=== PATIENT | female | born 1995 | race Caucasian/White ===

== ENCOUNTER 2018-01-18 11:28 | Emergency (ER) | payer BC, MEDICAID ==
[~2018-01-18] VITALS: Ht 165.1 cm; Wt 57.3 kg
[~2018-01-18 11:28] MED LIST: AZIT250T PO; ETON68IM3 SQ; FAMO20TA44 PO; HYDR4TAB45 PO; OMEP20CA10 PO; ONDA8TAB9 PO; PHE25R PR; SUCR1ORA2 PO
[2018-01-18 11:30] VITALS: BP 154/82
[2018-01-18] MEDS ORDERED: LORazepam 2 mg/ml vial IV ONE ×2 (11:35→13:35)
[2018-01-18] MEDS ORDERED: normal saline 1000ML IV soln IVB ONE ×2 (11:35→12:20)
[2018-01-18] MEDS ORDERED: proCHLORperazine 10 MG/2 ml inj IV ONE (11:35)
[2018-01-18] MEDS ORDERED: haloperidol lactate 5mg/ml inj IM ONE ×2 (11:50→12:20)
[2018-01-18 11:57] LABS: BASOPHILS % (AUTO) 0.3 % (0-1); EOSINOPHILS # (AUTO) 0.6 X10'3 (0-0.9); HEMATOCRIT 42.4 % (35.0-45.0); HEMOGLOBIN 14.8 g/dl (12.0-16.0); LYMPHOCYTES # (AUTO) 3.1 X10'3 (1.1-4.8); LYMPHOCYTES % (AUTO) 22.5 % (21-51); MEAN CORPUSCULAR HEMOGLOBIN 33.1 PG (27.0-31.0); MEAN CORPUSCULAR HGB CONC 34.8 % (33.0-36.5); MEAN PLATELET VOLUME 8.4 FL (7.4-10.4); MONOCYTES # (AUTO) 0.7 X10'3 (0-0.9); NEUTROPHILS # (AUTO) 9.5 X10'3 (1.8-7.7); NEUTROPHILS % (AUTO) 68.2 % (42-75); PLATELET COUNT 328 X10'3 (140-440); RED BLOOD COUNT 4.47 X10'6 (4.20-5.60); RED CELL DISTRIBUTION WIDTH 12.8 % (11.5-14.5); WHITE BLOOD COUNT 13.9 X10'3 (4.5-11.0)
[2018-01-18 12:13] LABS: ALANINE AMINOTRANSFERASE 24 U/L (12-78); ALBUMIN 4.3 G/DL (3.4-5.0); ALBUMIN/GLOBULIN RATIO 1.1 (1.1-1.5); ALKALINE PHOSPHATASE 55 IU/L (46-116); ANION GAP 17 (8-16); ASPARTATE AMINO TRANSFERASE 20 U/L (10-37); BILIRUBIN,TOTAL 0.3 MG/DL (0.1-1.0); BLOOD UREA NITROGEN 18 MG/DL (7-18); BUN/CREATININE RATIO 16.8 (6.6-38.0); CALCIUM 9.7 MG/DL (8.5-10.1); CHLORIDE 105 MMOL/L (99-107); CREATININE 1.07 MG/DL (0.40-0.90); GLUCOSE 123 MG/DL (70-104); LIPASE 412 U/L (73-393); POTASSIUM 3.9 MMOL/L (3.5-5.1); SODIUM 143 MMOL/L (135-145); TOTAL CARBON DIOXIDE 20.6 MMOL/L (24-32); TOTAL PROTEIN 8.1 G/DL (6.4-8.2); eGFR 64 ML/MIN
[2018-01-18] MEDS ORDERED: famotidine/PF 10 mg/ml inj IV ONE (12:20)
[2018-01-18 12:28] LABS: ETHANOL < 0.010 GM/DL (0.0-0.010)
[2018-01-18] MEDS ORDERED: ONDA4TAB9 SL (13:34)
== END 2018-01-18 14:15 | disposition home or self-care (01) ==
LOC: ER 11:29
DX: G43.A0 Cyclical vomiting, in migraine, not intractable (principal); R10.84 Generalized abdominal pain; F12.10 Cannabis abuse, uncomplicated; Z98.890 Other specified postprocedural states; Z88.2 Allergy status to sulfonamides; Z88.6 Allergy status to analgesic agent; Z79.899 Other long term (current) drug therapy
CPT/HCPCS: 36415; 80053; 80320; 83690; 85025; 96361; 96372; 96374; 96375; 96376; 99285; J0780; J1630; J2060; J3490; J7030

== ENCOUNTER 2018-01-19 14:35 | Emergency (ER) | payer MEDICAID ==
[~2018-01-19] VITALS: Ht 165.1 cm; Wt 57.0 kg
[~2018-01-19 14:35] MED LIST changes: +ONDA4TAB9 SL
[2018-01-19 15:18] LABS: BASOPHILS % (AUTO) 0.1 % (0-1); EOSINOPHILS # (AUTO) 0.3 X10'3 (0-0.9); EOSINOPHILS % (AUTO) 2.3 % (0-6); HEMATOCRIT 41.2 % (35.0-45.0); HEMOGLOBIN 14.3 g/dl (12.0-16.0); LYMPHOCYTES # (AUTO) 1.2 X10'3 (1.1-4.8); LYMPHOCYTES % (AUTO) 8.8 % (21-51); MEAN CORPUSCULAR HEMOGLOBIN 32.9 PG (27.0-31.0); MEAN CORPUSCULAR HGB CONC 34.6 % (33.0-36.5); MEAN CORPUSCULAR VOLUME 95.1 FL (78-98); MEAN PLATELET VOLUME 8.4 FL (7.4-10.4); MONOCYTES # (AUTO) 0.6 X10'3 (0-0.9); MONOCYTES % (AUTO) 4.4 % (2-12); NEUTROPHILS # (AUTO) 11.7 X10'3 (1.8-7.7); NEUTROPHILS % (AUTO) 84.4 % (42-75); PLATELET COUNT 265 X10'3 (140-440); RED BLOOD COUNT 4.33 X10'6 (4.20-5.60); RED CELL DISTRIBUTION WIDTH 12.5 % (11.5-14.5); WHITE BLOOD COUNT 13.8 X10'3 (4.5-11.0)
[2018-01-19 15:42] LABS: ALANINE AMINOTRANSFERASE 23 U/L (12-78); ALBUMIN 4.1 G/DL (3.4-5.0); ALBUMIN/GLOBULIN RATIO 1.1 (1.1-1.5); ALKALINE PHOSPHATASE 60 IU/L (46-116); ANION GAP 13 (8-16); ASPARTATE AMINO TRANSFERASE 32 U/L (10-37); BILIRUBIN,TOTAL 0.6 MG/DL (0.1-1.0); BLOOD UREA NITROGEN 12 MG/DL (7-18); BUN/CREATININE RATIO 15.2 (6.6-38.0); CALCIUM 9.4 MG/DL (8.5-10.1); CHLORIDE 104 MMOL/L (99-107); CREATININE 0.79 MG/DL (0.40-0.90); GLUCOSE 118 MG/DL (70-104); POTASSIUM 3.5 MMOL/L (3.5-5.1); SODIUM 141 MMOL/L (135-145); TOTAL CARBON DIOXIDE 23.7 MMOL/L (24-32); TOTAL PROTEIN 7.8 G/DL (6.4-8.2); eGFR > 90 ML/MIN
[2018-01-19] MEDS ORDERED: normal saline 1000ml 1,000 ML IV ONE (20:36)
[2018-01-19] MEDS ORDERED: normal saline 1000ML IV soln IVB ONE ×2 (20:40→22:50)
[2018-01-19] MEDS ORDERED: haloperidol lactate 5mg/ml inj IM ONE ×2 (20:40→21:50)
[2018-01-19] MEDS ORDERED: LORazepam 2 mg/ml vial IV ONE (20:40)
[2018-01-19] MEDS ORDERED: diphenhydrAMINE 50 mg/ml inj IV ONE (20:40)
[2018-01-19] MEDS ORDERED: ondansetron/PF 4mg/2ml inj IV ONE (21:40)
[2018-01-19] MEDS ORDERED: proCHLORperazine 10 MG/2 ml inj IV ONE (22:50)
[2018-01-20 00:37] VITALS: BP 113/60
== END 2018-01-20 00:52 | disposition home or self-care (01) ==
LOC: ER 14:35
DX: R10.9 Unspecified abdominal pain (principal); R11.2 Nausea with vomiting, unspecified; F12.10 Cannabis abuse, uncomplicated; Z98.890 Other specified postprocedural states; Z88.2 Allergy status to sulfonamides; Z88.6 Allergy status to analgesic agent; Z79.899 Other long term (current) drug therapy
CPT/HCPCS: 36415; 80053; 85025; 96361; 96372; 96374; 96375; 99285; J0780; J1200; J1630; J2060; J2405; J7030

== ENCOUNTER 2018-01-24 06:37 | Emergency (ER) | payer MEDICAID ==
[~2018-01-24] VITALS: Ht 165.1 cm; Wt 52.0 kg
[2018-01-24] MEDS ORDERED: proCHLORperazine 10 MG/2 ml inj IV ONE (07:40)
[2018-01-24] MEDS ORDERED: normal saline 1000ML IV soln IVB ONE ×2 (07:40→11:20)
[2018-01-24 07:47] LABS: BASOPHILS # (AUTO) 0.1 X10'3 (0-0.2); BASOPHILS % (AUTO) 0.4 % (0-1); EOSINOPHILS # (AUTO) 0.1 X10'3 (0-0.9); EOSINOPHILS % (AUTO) 1.1 % (0-6); HEMATOCRIT 41.9 % (35.0-45.0); HEMOGLOBIN 14.8 g/dl (12.0-16.0); LYMPHOCYTES # (AUTO) 0.9 X10'3 (1.1-4.8); LYMPHOCYTES % (AUTO) 6.5 % (21-51); MEAN CORPUSCULAR HGB CONC 35.3 % (33.0-36.5); MEAN CORPUSCULAR VOLUME 93.5 FL (78-98); MEAN PLATELET VOLUME 8.7 FL (7.4-10.4); MONOCYTES # (AUTO) 0.9 X10'3 (0-0.9); MONOCYTES % (AUTO) 6.5 % (2-12); NEUTROPHILS # (AUTO) 11.4 X10'3 (1.8-7.7); NEUTROPHILS % (AUTO) 85.5 % (42-75); PLATELET COUNT 352 X10'3 (140-440); RED BLOOD COUNT 4.48 X10'6 (4.20-5.60); RED CELL DISTRIBUTION WIDTH 12.3 % (11.5-14.5); WHITE BLOOD COUNT 13.4 X10'3 (4.5-11.0)
[2018-01-24 08:01] LABS: ALANINE AMINOTRANSFERASE 26 U/L (12-78); ALBUMIN 4.6 G/DL (3.4-5.0); ALBUMIN/GLOBULIN RATIO 1.1 (1.1-1.5); ALKALINE PHOSPHATASE 59 IU/L (46-116); AMYLASE 46 U/L (25-115); ANION GAP 15 (8-16); ASPARTATE AMINO TRANSFERASE 20 U/L (10-37); BLOOD UREA NITROGEN 18 MG/DL (7-18); BUN/CREATININE RATIO 22.5 (6.6-38.0); CHLORIDE 96 MMOL/L (99-107); GLUCOSE 102 MG/DL (70-104); LIPASE 109 U/L (73-393); MAGNESIUM 2.7 MG/DL (1.5-2.4); POTASSIUM 3.1 MMOL/L (3.5-5.1); SODIUM 139 MMOL/L (135-145); TOTAL CARBON DIOXIDE 27.6 MMOL/L (24-32); TOTAL PROTEIN 8.9 G/DL (6.4-8.2); eGFR 90 ML/MIN
[2018-01-24 08:02] LABS: INR 1.2 INR; PROTHROMBIN TIME 12.2 SECONDS (9.0-12.0)
[2018-01-24 08:05] LABS: ETHANOL < 0.010 GM/DL (0.0-0.010)
[2018-01-24] MEDS ORDERED: morphine 4 MG/ML inj SYRINge IV ONE (08:20)
[2018-01-24] MEDS ORDERED: ketorolac tromethamine 15mg/ml inj. IV ONE (08:20)
[2018-01-24] MEDS ORDERED: potassium 10mEq/100ml NS w/LIDOcaine (10mg/bag) IV ONE (08:25)
[2018-01-24] MEDS ORDERED: LORazepam 2 mg/ml vial IV ONE ×2 (08:25→11:20)
[2018-01-24] MEDS ORDERED: OLANZapine 5mg rapidly disint. tablet PO ONE (08:30)
[2018-01-24 11:01] LABS: CLARITY,URINE SLIGHTLY CLOUDY (Clear); COLOR,URINE YELLOW (Yellow); GLUCOSE, URINE NEGATIVE (Neg); KETONES,URINE >=80 mg/dl (Neg); LEUKOCYTE ESTERASE ,URINE NEGATIVE (Neg); NITRITES, URINE NEGATIVE (Neg); OCCULT BLOOD,URINE NEGATIVE (Neg); PROTEIN,URINE TRACE mg/dl (Neg); UA COLLECTION TYPE CLN CATCH MIDSTREAM; UROBILINOGEN,URINE 0.2 E.U/dL (0.2-1.0)
[2018-01-24 11:02] LABS: URINE HCG NEGATIVE (NEG)
[2018-01-24 11:06] LABS: BACTERIA,URINE 1+ /HPF (Neg); RBC,URINE 0-2 /HPF (0-2); WBC,URINE 0-4 /HPF (0-4)
[2018-01-24 11:07] LABS: AMORPHOUS PHOSPHATES 1+; MUCUS STRANDS MODERATE /LPF (Neg); SQUAMOUS EPITHELIAL CELL,UR MODERATE /LPF (FEW)
[2018-01-24 11:13] LABS: URINE AMPHETAMINE SCREEN NEGATIVE (Neg); URINE BARBITUATE SCREEN NEGATIVE (Neg); URINE BENZODIAZEPINES SCREEN NEGATIVE (Neg); URINE CANNABINOID SCREEN POSITIVE (Neg); URINE COCAINE SCREEN NEGATIVE (Neg); URINE METHADONE SCREEN NEGATIVE (Neg); URINE OPIATE SCREEN POSITIVE (Neg); URINE PHENCYCLIDINE SCREEN NEGATIVE (Neg)
[2018-01-24] MEDS ORDERED: CAPS60CR6 TP ×2 (11:30→11:34)
[2018-01-24] MEDS ORDERED: PROC-8 PO (11:30)
[2018-01-24 13:29] VITALS: BP 115/63
== END 2018-01-24 13:36 | disposition home or self-care (01) ==
LOC: ER 06:37
DX: G43.A0 Cyclical vomiting, in migraine, not intractable (principal); E87.6 Hypokalemia; Z79.899 Other long term (current) drug therapy; Z88.2 Allergy status to sulfonamides; Z88.6 Allergy status to analgesic agent; Z98.890 Other specified postprocedural states
CPT/HCPCS: 36415; 80053; 80178; 80305; 80320; 81001; 81025; 82150; 83690; 83735; 85025; 85610; 96361; 96374; 96375; 96376; 99284; J0780; J1885; J2060; J2270; J3480; J7030

== ENCOUNTER 2018-09-17 14:53 | Emergency (ER) | payer MEDICAID ==
[~2018-09-17] VITALS: Ht 165.1 cm; Wt 53.0 kg
[~2018-09-17 14:53] MED LIST changes: -AZIT250T PO; +CAPS60CR6 TP; -FAMO20TA44 PO; -HYDR4TAB45 PO; -ONDA4TAB9 SL; -PHE25R PR; +PROC-8 PO; -SUCR1ORA2 PO
[2018-09-17 15:23] VITALS: BP 133/88
[2018-09-17] MEDS ORDERED: proCHLORperazine 25mg suppository RC ONE (16:00)
[2018-09-17] MEDS ORDERED: PROC25SU31 RC (16:01)
[2018-09-17] MEDS ORDERED: DIPH25CA83 PO (16:01)
[2018-09-19] MEDS ORDERED: ONDA4TAB12 PO (20:25)
[2018-09-19] MEDS ORDERED: OMEP40CA37 PO (20:28)
== END 2018-09-17 16:39 | disposition home or self-care (01) ==
LOC: ER 14:53
DX: R11.2 Nausea with vomiting, unspecified (principal); R10.33 Periumbilical pain; Z88.2 Allergy status to sulfonamides; Z88.8 Allergy status to other drugs, medicaments and biological substances; Z79.899 Other long term (current) drug therapy; Z98.890 Other specified postprocedural states
CPT/HCPCS: 99284

== ENCOUNTER → 2018-12-11 | Emergency (ER) | payer MEDICAID ==
[~2018-12-11] VITALS: Ht 165.1 cm; Wt 49.5 kg
[~2018-12-11] MED LIST changes: +DIPH25CA83 PO; +LORazepam 1 MG tablet PO ONE; +ONDA4TAB12 PO; +ketorolac tromethamine 15mg/ml inj. IM ONE
[2018-12-11 17:58] VITALS: BP 112/60
== END | disposition home or self-care (01) ==
LOC: ER 17:54
DX: F41.0 Panic disorder [episodic paroxysmal anxiety] (principal); M54.16 Radiculopathy, lumbar region; R11.10 Vomiting, unspecified; R20.0 Anesthesia of skin; F31.9 Bipolar disorder, unspecified; Z98.890 Other specified postprocedural states; Z88.8 Allergy status to other drugs, medicaments and biological substances; Z88.2 Allergy status to sulfonamides; Z88.5 Allergy status to narcotic agent; Z88.6 Allergy status to analgesic agent; Z79.899 Other long term (current) drug therapy
CPT/HCPCS: 96372; 99284; J1885

== ENCOUNTER → 2019-02-12 | Emergency (ER) | payer MEDICAID ==
[~2019-02-12] VITALS: Ht 165.1 cm; Wt 46.2 kg
[~2019-02-12] MED LIST changes: -LORazepam 1 MG tablet PO ONE; +NAPR-56 PO; +PHE12.5T PO; +haloperidol lactate 5mg/ml inj IM ONE; -ketorolac tromethamine 15mg/ml inj. IM ONE; +naproxen 500mg tablet PO ONE; +ondansetron 4mg rapidly disintigrating tab PO ONE; +ondansetron 4mg rapidly disintigrating tab PO STA
--- NOTE | 2019-02-12 08:11 | NUR ---
patient to ct.
--- NOTE | 2019-02-12 09:17 | NUR ---
PATIENT'S FRIEND ERICK TO TRANSPORT HER HOME.
[2019-02-12 09:18] VITALS: BP 131/80
== END | disposition home or self-care (01) ==
LOC: ER 07:29
DX: F07.81 Postconcussional syndrome (principal); F17.200 Nicotine dependence, unspecified, uncomplicated; Z88.5 Allergy status to narcotic agent; Z88.2 Allergy status to sulfonamides; Z79.899 Other long term (current) drug therapy; W18.09XA Striking against other object with subsequent fall, initial encounter; Y93.89 Activity, other specified; Y92.89 Other specified places as the place of occurrence of the external cause; Y99.8 Other external cause status
CPT/HCPCS: 70450; 96372; 99284; J1630

== ENCOUNTER 2019-04-19 15:24 | Emergency (ER) | payer MEDICAID ==
[~2019-04-19] VITALS: Ht 165.1 cm; Wt 45.0 kg
[~2019-04-19 15:24] MED LIST changes: -NAPR-56 PO; -OMEP20CA10 PO; +OMEP20CA11 PO; -PHE12.5T PO; +PROM12.512 PO; -haloperidol lactate 5mg/ml inj IM ONE; -naproxen 500mg tablet PO ONE; -ondansetron 4mg rapidly disintigrating tab PO ONE; -ondansetron 4mg rapidly disintigrating tab PO STA
[2019-04-19 16:15] LABS: BASOPHILS # (AUTO) 0.1 X10'3 (0-0.2); BASOPHILS % (AUTO) 0.4 % (0-1); EOSINOPHILS # (AUTO) 0.2 X10'3 (0-0.9); EOSINOPHILS % (AUTO) 1.4 % (0-6); HEMATOCRIT 46.3 % (35.0-45.0); HEMOGLOBIN 15.5 g/dl (12.0-16.0); LYMPHOCYTES # (AUTO) 2.5 X10'3 (1.1-4.8); LYMPHOCYTES % (AUTO) 16.4 % (21-51); MEAN CORPUSCULAR HEMOGLOBIN 32.5 PG (27.0-31.0); MEAN CORPUSCULAR HGB CONC 33.5 g/dL (33.0-36.5); MEAN CORPUSCULAR VOLUME 97.1 FL (78-98); MEAN PLATELET VOLUME 8.4 FL (7.4-10.4); MONOCYTES # (AUTO) 0.7 X10'3 (0-0.9); MONOCYTES % (AUTO) 4.8 % (2-12); NEUTROPHILS # (AUTO) 11.6 X10'3 (1.8-7.7); PLATELET COUNT 314 X10'3 (140-440); RED BLOOD COUNT 4.77 X10'6 (4.20-5.60); RED CELL DISTRIBUTION WIDTH 12.8 % (11.5-14.5)
[2019-04-19 16:29] LABS: ALANINE AMINOTRANSFERASE 40 U/L (12-78); ALBUMIN 4.7 G/DL (3.4-5.0); ALBUMIN/GLOBULIN RATIO 1.2 (1.1-1.5); ALKALINE PHOSPHATASE 64 IU/L (46-116); AMYLASE 55 U/L (25-115); ANION GAP 15 (8-16); ASPARTATE AMINO TRANSFERASE 24 U/L (10-37); BILIRUBIN,TOTAL 0.5 MG/DL (0.1-1.0); BLOOD UREA NITROGEN 14 MG/DL (7-18); BUN/CREATININE RATIO 15.4 (6.6-38.0); CHLORIDE 103 MMOL/L (99-107); CREATININE 0.91 MG/DL (0.40-0.90); GLUCOSE 105 MG/DL (70-104); LIPASE 137 U/L (73-393); POTASSIUM 3.7 MMOL/L (3.5-5.1); SODIUM 139 MMOL/L (135-145); TOTAL CARBON DIOXIDE 21.3 MMOL/L (24-32); TOTAL PROTEIN 8.7 G/DL (6.4-8.2); eGFR 77 ML/MIN
[2019-04-19] MEDS ORDERED: LORA1TAB PO (16:30)
[2019-04-19] MEDS ORDERED: ACYC-202 PO ×2 (16:30→20:04)
[2019-04-19 16:32] LABS: CALCIUM 10.2 MG/DL (8.5-10.1)
--- NOTE | 2019-04-19 16:45 | NUR ---
PATIENT AGREED TO BE ASSESSED IN HALLWAY 7.
--- NOTE | 2019-04-19 17:08 | NUR ---
patient unable to provide urine at this time,reports she is unable to get up without vomiting.
[2019-04-19] MEDS ORDERED: ondansetron/PF 4mg/2ml inj IV STA (17:16)
[2019-04-19 17:41] VITALS: BP 125/76
--- NOTE | 2019-04-19 18:00 | NUR ---
YULISA NGUYEN AT BEDSIDE.
[2019-04-19] MEDS ORDERED: normal saline 1000ml 1,000 ML IV ONE (18:10)
[2019-04-19] MEDS ORDERED: HYDROmorphone 1 mg/ml syringe IV ONE (18:10)
[2019-04-19] MEDS ORDERED: LORazepam 2 mg/ml vial IV ONE (18:10)
[2019-04-19] MEDS ORDERED: ondansetron/PF 4mg/2ml inj IV ONE (18:10)
--- NOTE | 2019-04-19 18:10 | NUR ---
PATIENT UP TO THE BATHROOM.
--- NOTE | 2019-04-19 18:47 | NUR ---
Assumed care. Patient has been given Zofran, Dilaaudid, and Zofran IV. Pain is now a 5 on a 0-10 scale. Decreased nausea. Patient is sitting up texting on her cell phone.
--- NOTE | 2019-04-19 19:30 | NUR ---
Patient is up to the bathroom, she believes she can void. If not successful a quick cath will be done.
[2019-04-19 19:39] LABS: CLARITY,URINE CLEAR (Clear); COLOR,URINE YELLOW (Yellow); GLUCOSE, URINE NEGATIVE (Neg); KETONES,URINE 15 mg/dl (Neg); LEUKOCYTE ESTERASE ,URINE NEGATIVE (Neg); NITRITES, URINE NEGATIVE (Neg); OCCULT BLOOD,URINE NEGATIVE (Neg); PH,URINE 6.5 (4.8-8.0); PROTEIN,URINE 30 mg/dl (Neg); URINE HCG NEGATIVE (NEG); UROBILINOGEN,URINE 0.2 E.U/dL (0.2-1.0)
[2019-04-19 19:40] LABS: UA COLLECTION TYPE CLN CATCH MIDSTREAM
[2019-04-19 19:49] LABS: BACTERIA,URINE 2+ /HPF (Neg); HYALINE CASTS 0-3 /LPF (NEGATIVE); MUCUS STRANDS FEW /LPF (Neg); RBC,URINE 0-2 /HPF (0-2); SQUAMOUS EPITHELIAL CELL,UR MANY /LPF (FEW); WBC,URINE 0-4 /HPF (0-4)
[2019-04-19] MEDS ORDERED: ONDA4TAB6 PO (20:04)
--- NOTE | 2019-04-19 20:21 | NUR ---
PT STATES PAIN IS 5/10, DECLINES ANY PAIN MEDICATION
== END 2019-04-19 20:25 | disposition home or self-care (01) ==
LOC: ER 15:24
DX: B00.9 Herpesviral infection, unspecified (principal); R10.84 Generalized abdominal pain; R11.2 Nausea with vomiting, unspecified; F41.9 Anxiety disorder, unspecified; F31.9 Bipolar disorder, unspecified; Z98.890 Other specified postprocedural states; Z88.5 Allergy status to narcotic agent; Z88.2 Allergy status to sulfonamides; Z88.8 Allergy status to other drugs, medicaments and biological substances; Z79.2 Long term (current) use of antibiotics; Z79.899 Other long term (current) drug therapy
CPT/HCPCS: 36415; 80053; 81001; 81025; 82150; 83690; 85025; 85610; 96361; 96374; 96375; 99283; J1170; J2060; J2405; J7030

== ENCOUNTER 2019-06-09 10:21 | Emergency (ER) | payer MEDICAID ==
[~2019-06-09] VITALS: Ht 165.1 cm; Wt 44.5 kg
[~2019-06-09 10:21] MED LIST changes: +ACYC-202 PO; -DIPH25CA83 PO; +LORA1TAB PO; -ONDA4TAB12 PO; +ONDA4TAB6 PO; -PROM12.512 PO
[2019-06-09 11:04] LABS: BASOPHILS # (AUTO) 0.1 X10'3 (0-0.2); BASOPHILS % (AUTO) 0.8 % (0-1); EOSINOPHILS # (AUTO) 0.2 X10'3 (0-0.9); EOSINOPHILS % (AUTO) 1.4 % (0-6); HEMATOCRIT 44.7 % (35.0-45.0); HEMOGLOBIN 15.4 g/dl (12.0-16.0); LYMPHOCYTES % (AUTO) 18.5 % (21-51); MEAN CORPUSCULAR HEMOGLOBIN 33.2 PG (27.0-31.0); MEAN CORPUSCULAR HGB CONC 34.4 g/dL (33.0-36.5); MEAN CORPUSCULAR VOLUME 96.4 FL (78-98); MEAN PLATELET VOLUME 8.7 FL (7.4-10.4); MONOCYTES # (AUTO) 0.4 X10'3 (0-0.9); MONOCYTES % (AUTO) 3.6 % (2-12); NEUTROPHILS # (AUTO) 8.3 X10'3 (1.8-7.7); NEUTROPHILS % (AUTO) 75.7 % (42-75); PLATELET COUNT 271 X10'3 (140-440); RED BLOOD COUNT 4.63 X10'6 (4.20-5.60); RED CELL DISTRIBUTION WIDTH 13.3 % (11.5-14.5)
[2019-06-09 11:16] LABS: ALANINE AMINOTRANSFERASE 28 U/L (12-78); ALBUMIN/GLOBULIN RATIO 1.5 (1.1-1.5); ALKALINE PHOSPHATASE 50 IU/L (46-116); ANION GAP 14 (8-16); ASPARTATE AMINO TRANSFERASE 16 U/L (10-37); BILIRUBIN,TOTAL 0.7 MG/DL (0.1-1.0); BLOOD UREA NITROGEN 15 MG/DL (7-18); BUN/CREATININE RATIO 18.5 (6.6-38.0); CALCIUM 9.8 MG/DL (8.5-10.1); CHLORIDE 105 MMOL/L (99-107); CREATININE 0.81 MG/DL (0.40-0.90); GLUCOSE 94 MG/DL (70-104); POTASSIUM 3.9 MMOL/L (3.5-5.1); SODIUM 141 MMOL/L (135-145); TOTAL CARBON DIOXIDE 21.6 MMOL/L (24-32); TOTAL PROTEIN 8.4 G/DL (6.4-8.2); eGFR 88 ML/MIN
[2019-06-09] MEDS ORDERED: normal saline 1000ml 1,000 ML IV ONE (12:00)
[2019-06-09 12:09] LABS: CLARITY,URINE SLIGHTLY CLOUDY (Clear); COLOR,URINE YELLOW (Yellow); GLUCOSE, URINE NEGATIVE (Neg); KETONES,URINE TRACE mg/dl (Neg); LEUKOCYTE ESTERASE ,URINE NEGATIVE (Neg); NITRITES, URINE NEGATIVE (Neg); OCCULT BLOOD,URINE NEGATIVE (Neg); PH,URINE 8.5 (4.8-8.0); PROTEIN,URINE NEGATIVE (Neg); UROBILINOGEN,URINE 0.2 E.U/dL (0.2-1.0)
--- NOTE | 2019-06-09 12:12 | NUR ---
DR MARAVILLA AT BEDSIDE, MD INFORMED THAT THE MRI OF LUMBAR AND CERVICAL AREAS DONE AT [facility] THAT SHE REQUESTED ARE ON HER DESK WHEN PATIENT GOT UP TO BEDSIDE COMMODE WITH MINIMAL ASSIST, PATIENT USED HER RIGHT ARM TO MASS SPECTROMETRY MANAGER THE COMMODE AND BORE WEIGHT ON IT. VOIDED 350 ML IN COMMODE, URINE SENT MOTHER STATES THAT HER DAUGHTER HAS AVOIDANCE RESTRICTIVE EATING DISORDER, PATIENT STATES THAT SHE HAS NOT HAD ANYTHING TO EAT AND VERY LITTLE TO DRINK TODAY, PATIENT STATES THAT SHE EATS ONCE DAILY AT NIGHT. PATIENT IS EXTREMELY HYPER SENSITIVE TO TOUCH AND IS ALMANZA.
[2019-06-09 12:15] LABS: URINE AMPHETAMINE SCREEN NEGATIVE (Neg); URINE BARBITUATE SCREEN NEGATIVE (Neg); URINE BENZODIAZEPINES SCREEN NEGATIVE (Neg); URINE CANNABINOID SCREEN POSITIVE (Neg); URINE COCAINE SCREEN NEGATIVE (Neg); URINE METHADONE SCREEN NEGATIVE (Neg); URINE OPIATE SCREEN NEGATIVE (Neg); URINE PHENCYCLIDINE SCREEN NEGATIVE (Neg)
[2019-06-09] MEDS ORDERED: ketorolac trometh. 30mg/ml inj. IV ONE (12:15)
[2019-06-09 12:17] LABS: UA COLLECTION TYPE CLN CATCH MIDSTREAM
[2019-06-09 12:19] LABS: MUCUS STRANDS FEW /LPF (Neg)
[2019-06-09 12:22] LABS: RBC,URINE 0-2 /HPF (0-2); WBC,URINE 0-4 /HPF (0-4)
[2019-06-09 12:24] LABS: AMORPHOUS PHOSPHATES 1+
[2019-06-09 12:35] LABS: BACTERIA,URINE 1+ /HPF (Neg)
[2019-06-09 12:37] LABS: SQUAMOUS EPITHELIAL CELL,UR MODERATE /LPF (FEW)
--- NOTE | 2019-06-09 13:11 | NUR ---
IAM TOLD TECH WALKING BY THAT SHE WANTS HER IV OUT, EDILBERTO BUSY WITH ANOTHER PATIENT SO I ASKED THE TECH TO RELAY AMESSAGE: THAT THE PATIENT IS NOT DISCHARGE READY AND WE CAN TAKE OUT THE IV RIGHT NOW IF SHE WOULD LIKE TO LEAVE AMA
[2019-06-09] MEDS ORDERED: ondansetron/PF 4mg/2ml inj IV ONE (13:20)
--- NOTE | 2019-06-09 13:59 | NUR ---
per dr crain patient does not need anymore troponins drawn
[2019-06-09 14:13] VITALS: BP 125/70
== END 2019-06-09 14:19 | disposition home or self-care (01) ==
LOC: ER 10:22
DX: R10.9 Unspecified abdominal pain (principal); R20.2 Paresthesia of skin; R20.0 Anesthesia of skin; R06.02 Shortness of breath; G89.29 Other chronic pain; M54.2 Cervicalgia; M54.6 Pain in thoracic spine; M54.5 Low back pain; F41.9 Anxiety disorder, unspecified; F31.9 Bipolar disorder, unspecified; Z98.890 Other specified postprocedural states; Z88.2 Allergy status to sulfonamides; Z88.6 Allergy status to analgesic agent; Z88.8 Allergy status to other drugs, medicaments and biological substances; Z79.899 Other long term (current) drug therapy
CPT/HCPCS: 36415; 80053; 80305; 81001; 83735; 84484; 85025; 93005; 96374; 96375; 99284; J1885; J2405; J7030; 96361

== ENCOUNTER 2019-11-07 17:11 | Emergency (ER) | payer MEDICAID ==
[~2019-11-07] VITALS: Ht 165.1 cm; Wt 51.6 kg
[~2019-11-07 17:11] MED LIST changes: -OMEP20CA11 PO; +OMEP20CA15 PO
[2019-11-07 18:00] LABS: BASOPHILS # (AUTO) 0.1 X10'3 (0-0.2); BASOPHILS % (AUTO) 0.6 % (0-1); EOSINOPHILS # (AUTO) 0.1 X10'3 (0-0.9); EOSINOPHILS % (AUTO) 0.7 % (0-6); HEMATOCRIT 42.5 % (35.0-45.0); HEMOGLOBIN 14.6 g/dl (12.0-16.0); LYMPHOCYTES # (AUTO) 1.3 X10'3 (1.1-4.8); LYMPHOCYTES % (AUTO) 10.3 % (21-51); MEAN CORPUSCULAR HEMOGLOBIN 32.8 PG (27.0-31.0); MEAN CORPUSCULAR HGB CONC 34.3 g/dL (33.0-36.5); MEAN CORPUSCULAR VOLUME 95.6 FL (78-98); MEAN PLATELET VOLUME 8.3 FL (7.4-10.4); MONOCYTES # (AUTO) 0.7 X10'3 (0-0.9); NEUTROPHILS # (AUTO) 10.9 X10'3 (1.8-7.7); NEUTROPHILS % (AUTO) 83.4 % (42-75); PLATELET COUNT 319 X10'3 (140-440); RED BLOOD COUNT 4.45 X10'6 (4.20-5.60); RED CELL DISTRIBUTION WIDTH 12.7 % (11.5-14.5); WHITE BLOOD COUNT 13.1 X10'3 (4.5-11.0)
[2019-11-07 18:18] LABS: ALANINE AMINOTRANSFERASE 24 U/L (12-78); ALBUMIN 5.1 G/DL (3.4-5.0); ALBUMIN/GLOBULIN RATIO 1.6 (1.1-1.5); ALKALINE PHOSPHATASE 54 IU/L (46-116); ANION GAP 14 (8-16); ASPARTATE AMINO TRANSFERASE 23 U/L (10-37); BILIRUBIN,TOTAL 0.5 MG/DL (0.1-1.0); BLOOD UREA NITROGEN 22 MG/DL (7-18); BUN/CREATININE RATIO 22.9 (6.6-38.0); CHLORIDE 107 MMOL/L (99-107); CREATININE 0.96 MG/DL (0.40-0.90); GLUCOSE 120 MG/DL (70-104); LIPASE 150 U/L (73-393); SODIUM 143 MMOL/L (135-145); TOTAL CARBON DIOXIDE 22.1 MMOL/L (24-32); TOTAL PROTEIN 8.3 G/DL (6.4-8.2); eGFR 71 ML/MIN
[2019-11-07 18:39] VITALS: BP 140/85
--- NOTE | 2019-11-07 18:40 | NUR ---
ASSISTING RN WITH PT CARE, PT IS 24 YO FEMALE C/O DIARRHEA, N/V OFF AND ON X1 WEEK, "VOMITING ALL DAY TODAY", PT HAS H/O OF ARFID D/O, SAID SHE TOOK 5 OR MORE TABS OF ZOFRAN 8MG (LAST DOSE AT 1500), ATIVAN 1MG 1 TAB TODAY AT 1500, PT IS GCS 15, ALERT, RESP EVEN AND UNLABORED, SKIN PALE, WARM AND DRY, PT AWARE UA NEEDED, UNABLE TO URINATE AT THIS TIME
[2019-11-07] MEDS ORDERED: normal saline 1000ML IV soln IVB ONE (19:25)
[2019-11-07] MEDS ORDERED: ondansetron/PF 4mg/2ml inj IV ONE ×2 (19:25→21:30)
[2019-11-07] MEDS ORDERED: haloperidol lactate 5mg/ml inj IM ONE (19:25)
[2019-11-07] MEDS ORDERED: diphenhydrAMINE 50 mg/ml inj IV ONE (19:25)
[2019-11-07] MEDS ORDERED: normal saline 1000ml 1,000 ML IV ONE (19:30)
[2019-11-07] MEDS ORDERED: morphine 4 MG/ML inj SYRINge IV ONE (21:30)
[2019-11-07 22:21] LABS: CLARITY,URINE CLEAR (Clear); COLOR,URINE YELLOW (Yellow); GLUCOSE, URINE NEGATIVE (Neg); KETONES,URINE 40 mg/dl (Neg); LEUKOCYTE ESTERASE ,URINE NEGATIVE (Neg); NITRITES, URINE NEGATIVE (Neg); OCCULT BLOOD,URINE NEGATIVE (Neg); PH,URINE 7.5 (4.8-8.0); PROTEIN,URINE TRACE mg/dl (Neg); UROBILINOGEN,URINE 0.2 E.U/dL (0.2-1.0)
[2019-11-07 22:22] LABS: URINE HCG NEGATIVE (NEG)
[2019-11-07 22:28] LABS: UA COLLECTION TYPE CLN CATCH MIDSTREAM
[2019-11-07] MEDS ORDERED: ONDA4TAB6 PO (22:30)
[2019-11-07 22:31] LABS: BACTERIA,URINE 2+ /HPF (Neg); RBC,URINE 0-2 /HPF (0-2); SQUAMOUS EPITHELIAL CELL,UR MANY /LPF (FEW); WBC,URINE 0-4 /HPF (0-4)
[2019-11-07 22:32] LABS: MUCUS STRANDS MODERATE /LPF (Neg)
== END 2019-11-07 22:48 | disposition home or self-care (01) ==
LOC: ER 17:12
DX: R10.84 Generalized abdominal pain (principal); R11.2 Nausea with vomiting, unspecified; R19.7 Diarrhea, unspecified; F41.9 Anxiety disorder, unspecified; F31.9 Bipolar disorder, unspecified; Z88.2 Allergy status to sulfonamides; Z88.8 Allergy status to other drugs, medicaments and biological substances; Z79.899 Other long term (current) drug therapy; Z98.890 Other specified postprocedural states
CPT/HCPCS: 36415; 80053; 81001; 81025; 83690; 85025; 96361; 96372; 96374; 96375; 96376; 99284; J1200; J1630; J2270; J2405; J7030

== ENCOUNTER 2019-11-24 10:02 | Emergency (ER) | payer MEDICAID ==
[~2019-11-24] VITALS: Ht 165.1 cm; Wt 49.2 kg
[2019-11-24 10:09] VITALS: BP 140/71
[2019-11-24] MEDS ORDERED: normal saline 1000ML IV soln IVB ONE ×2 (11:30)
[2019-11-24] MEDS ORDERED: LORazepam 2 mg/ml vial IV ONE (11:30)
[2019-11-24] MEDS ORDERED: haloperidol lactate 5mg/ml inj IM ONE (11:30)
[2019-11-24] MEDS ORDERED: metoclopramide 5 mg/ml inj IV ONE (11:30)
[2019-11-24 12:00] LABS: BASOPHILS % (AUTO) 0.6 % (0-1); EOSINOPHILS # (AUTO) 0.1 X10'3 (0-0.9); EOSINOPHILS % (AUTO) 0.7 % (0-6); HEMATOCRIT 41.9 % (35.0-45.0); HEMOGLOBIN 14.4 g/dl (12.0-16.0); LYMPHOCYTES # (AUTO) 0.9 X10'3 (1.1-4.8); LYMPHOCYTES % (AUTO) 10.7 % (21-51); MEAN CORPUSCULAR HEMOGLOBIN 33.1 PG (27.0-31.0); MEAN CORPUSCULAR HGB CONC 34.5 g/dL (33.0-36.5); MEAN CORPUSCULAR VOLUME 96.2 FL (78-98); MEAN PLATELET VOLUME 8.5 FL (7.4-10.4); MONOCYTES # (AUTO) 0.5 X10'3 (0-0.9); MONOCYTES % (AUTO) 6.4 % (2-12); NEUTROPHILS % (AUTO) 81.6 % (42-75); PLATELET COUNT 263 X10'3 (140-440); RED BLOOD COUNT 4.35 X10'6 (4.20-5.60); RED CELL DISTRIBUTION WIDTH 12.5 % (11.5-14.5); WHITE BLOOD COUNT 8.5 X10'3 (4.5-11.0)
[2019-11-24 12:09] LABS: ALANINE AMINOTRANSFERASE 29 U/L (12-78); ALBUMIN 4.8 G/DL (3.4-5.0); ALBUMIN/GLOBULIN RATIO 1.4 (1.1-1.5); ALKALINE PHOSPHATASE 52 IU/L (46-116); ANION GAP 8 (8-16); ASPARTATE AMINO TRANSFERASE 25 U/L (10-37); BILIRUBIN,TOTAL 0.5 MG/DL (0.1-1.0); BLOOD UREA NITROGEN 25 MG/DL (7-18); BUN/CREATININE RATIO 27.8 (6.6-38.0); CALCIUM 9.7 MG/DL (8.5-10.1); CHLORIDE 107 MMOL/L (99-107); GLUCOSE 85 MG/DL (70-104); LIPASE 96 U/L (73-393); POTASSIUM 3.9 MMOL/L (3.5-5.1); SODIUM 145 MMOL/L (135-145); TOTAL CARBON DIOXIDE 29.9 MMOL/L (24-32); TOTAL PROTEIN 8.2 G/DL (6.4-8.2); eGFR 77 ML/MIN
[2019-11-25] MEDS ORDERED: PROM25SU46 RC (01:50)
== END 2019-11-24 17:17 | disposition left against medical advice (07) ==
LOC: ER 10:03
DX: R11.15 Cyclical vomiting syndrome unrelated to migraine (principal); F41.9 Anxiety disorder, unspecified; F31.9 Bipolar disorder, unspecified; Z98.890 Other specified postprocedural states; Z88.2 Allergy status to sulfonamides; Z88.6 Allergy status to analgesic agent; Z88.8 Allergy status to other drugs, medicaments and biological substances; Z79.899 Other long term (current) drug therapy
CPT/HCPCS: 36415; 80053; 83690; 85025; 99283

== ENCOUNTER 2019-11-24 22:28 | Emergency (ER) | payer MEDICAID ==
[~2019-11-24] VITALS: Ht 165.1 cm; Wt 54.5 kg
[2019-11-25] MEDS ORDERED: LORazepam 2 mg/ml vial IM ONE (00:55)
[2019-11-25] MEDS ORDERED: haloperidol lactate 5mg/ml inj IM ONE (00:55)
[2019-11-25] MEDS ORDERED: diphenhydrAMINE 50 mg/ml inj IM ONE (00:55)
[2019-11-25] MEDS ORDERED: normal saline 1000ML IV soln IVB ONE (01:15)
[2019-11-25] MEDS ORDERED: LORazepam 2 mg/ml vial IV ONE (01:45)
[2019-11-25] MEDS ORDERED: diphenhydrAMINE 50 mg/ml inj IV ONE (01:45)
[2019-11-25] MEDS ORDERED: PROM25SU46 RC (01:50)
[2019-11-25] MEDS ORDERED: famotidine/PF 10 mg/ml inj IV ONE (01:50)
[2019-11-25 02:55] VITALS: BP 113/71
== END 2019-11-25 02:57 | disposition home or self-care (01) ==
LOC: ER 22:29
DX: R11.15 Cyclical vomiting syndrome unrelated to migraine (principal); F12.10 Cannabis abuse, uncomplicated; F41.9 Anxiety disorder, unspecified; F31.9 Bipolar disorder, unspecified; Z98.890 Other specified postprocedural states; Z88.2 Allergy status to sulfonamides; Z88.8 Allergy status to other drugs, medicaments and biological substances; Z79.899 Other long term (current) drug therapy
CPT/HCPCS: 96361; 96372; 96374; 96375; 99284; J1200; J1630; J2060; J3490; J7030

== ENCOUNTER 2019-12-25 05:12 | Emergency (ER) | payer MEDICAID ==
[~2019-12-25] VITALS: Ht 165.1 cm; Wt 45.0 kg
[~2019-12-25 05:12] MED LIST changes: +PROM25SU46 RC
[2019-12-25] MEDS ORDERED: haloperidol lactate 5mg/ml inj IM ONE (05:35)
[2019-12-25] MEDS ORDERED: ondansetron 4mg rapidly disintigrating tab PO ONE (06:00)
[2019-12-25 06:14] VITALS: BP 135/68
[2019-12-26] MEDS ORDERED: LORA2TAB96 PO (15:46)
== END 2019-12-25 06:16 | disposition home or self-care (01) ==
LOC: ER 05:13
DX: R11.15 Cyclical vomiting syndrome unrelated to migraine (principal); F41.9 Anxiety disorder, unspecified; F32.9 Major depressive disorder, single episode, unspecified; F12.90 Cannabis use, unspecified, uncomplicated; Z88.2 Allergy status to sulfonamides; Z88.6 Allergy status to analgesic agent; Z88.8 Allergy status to other drugs, medicaments and biological substances; Z79.899 Other long term (current) drug therapy
CPT/HCPCS: 96372; 99283; J1630

== ENCOUNTER 2019-12-26 14:15 | Emergency (ER) | payer MEDICAID ==
[~2019-12-26] VITALS: Ht 165.1 cm; Wt 49.0 kg
[2019-12-26] MEDS ORDERED: LORazepam 1 MG tablet PO ONE (15:15)
--- NOTE | 2019-12-26 15:39 | NUR ---
pt c/o nausea afraid she will be unable to keep ativan down. informed rahul travis please see new orders.
[2019-12-26] MEDS ORDERED: ondansetron 4mg rapidly disintigrating tab PO ONE (15:40)
[2019-12-26] MEDS ORDERED: LORA2TAB96 PO (15:46)
[2019-12-26 16:20] VITALS: BP 114/71
== END 2019-12-26 16:27 | disposition home or self-care (01) ==
LOC: ER 14:15
DX: F41.9 Anxiety disorder, unspecified (principal); F41.0 Panic disorder [episodic paroxysmal anxiety]; F31.9 Bipolar disorder, unspecified; F12.90 Cannabis use, unspecified, uncomplicated; Z98.890 Other specified postprocedural states; Z88.8 Allergy status to other drugs, medicaments and biological substances; Z88.2 Allergy status to sulfonamides; Z79.899 Other long term (current) drug therapy
CPT/HCPCS: 99284

== ENCOUNTER 2020-02-08 19:04 | Emergency (ER) | payer MEDICAID ==
[~2020-02-08] VITALS: Ht 165.1 cm; Wt 60.0 kg
[~2020-02-08 19:04] MED LIST changes: +LORA2TAB96 PO
[2020-02-08] MEDS ORDERED: LORazepam 2 mg/ml vial IV ONE (19:50)
[2020-02-08] MEDS ORDERED: meclizine 12.5mg tablet PO ONE (19:50)
[2020-02-08 20:01] LABS: BASOPHILS % (AUTO) 0.3 % (0-1); EOSINOPHILS % (AUTO) 0 % (0-6); HEMATOCRIT 42.3 % (35.0-45.0); HEMOGLOBIN 14.2 g/dl (12.0-16.0); LYMPHOCYTES # (AUTO) 1.1 X10'3 (1.1-4.8); LYMPHOCYTES % (AUTO) 7.5 % (21-51); MEAN CORPUSCULAR HEMOGLOBIN 32.5 PG (27.0-31.0); MEAN CORPUSCULAR HGB CONC 33.7 g/dL (33.0-36.5); MEAN CORPUSCULAR VOLUME 96.6 FL (78-98); MEAN PLATELET VOLUME 9.1 FL (7.4-10.4); MONOCYTES # (AUTO) 0.4 X10'3 (0-0.9); MONOCYTES % (AUTO) 2.4 % (2-12); NEUTROPHILS # (AUTO) 13.6 X10'3 (1.8-7.7); NEUTROPHILS % (AUTO) 89.8 % (42-75); PLATELET COUNT 289 X10'3 (140-440); RED BLOOD COUNT 4.37 X10'6 (4.20-5.60); RED CELL DISTRIBUTION WIDTH 12.1 % (11.5-14.5); WHITE BLOOD COUNT 15.2 X10'3 (4.5-11.0)
[2020-02-08 20:08] LABS: ALANINE AMINOTRANSFERASE 18 U/L (12-78); ALBUMIN 4.1 G/DL (3.4-5.0); ALBUMIN/GLOBULIN RATIO 1.1 (1.1-1.5); ALKALINE PHOSPHATASE 41 IU/L (46-116); ANION GAP 17 (8-16); ASPARTATE AMINO TRANSFERASE 24 U/L (10-37); BILIRUBIN,TOTAL 0.3 MG/DL (0.1-1.0); BLOOD UREA NITROGEN 24 MG/DL (7-18); BUN/CREATININE RATIO 21.6 (6.6-38.0); CHLORIDE 106 MMOL/L (99-107); CREATININE 1.11 MG/DL (0.40-0.90); GLUCOSE 151 MG/DL (70-104); POTASSIUM 3.7 MMOL/L (3.5-5.1); SODIUM 142 MMOL/L (135-145); TOTAL PROTEIN 7.9 G/DL (6.4-8.2); eGFR 60 ML/MIN
[2020-02-08 20:28] LABS: CLARITY,URINE SLIGHTLY CLOUDY (Clear); COLOR,URINE YELLOW (Yellow); GLUCOSE, URINE NEGATIVE (Neg); KETONES,URINE >=80 mg/dl (Neg); LEUKOCYTE ESTERASE ,URINE NEGATIVE (Neg); NITRITES, URINE NEGATIVE (Neg); OCCULT BLOOD,URINE NEGATIVE (Neg); PH,URINE 6.5 (4.8-8.0); PROTEIN,URINE TRACE mg/dl (Neg); UROBILINOGEN,URINE 0.2 E.U/dL (0.2-1.0)
[2020-02-08 20:29] LABS: URINE HCG NEGATIVE (NEG)
[2020-02-08] MEDS ORDERED: normal saline 1000ML IV soln IVB ONE (20:30)
[2020-02-08 20:33] LABS: UA COLLECTION TYPE CLN CATCH MIDSTREAM
[2020-02-08 20:35] LABS: BACTERIA,URINE 1+ /HPF (Neg); MUCUS STRANDS MANY /LPF (Neg); RBC,URINE 0-2 /HPF (0-2); SQUAMOUS EPITHELIAL CELL,UR MODERATE /LPF (FEW); WBC,URINE 0-4 /HPF (0-4)
--- NOTE | 2020-02-08 20:54 | NUR ---
Pt eating ice chips. she was able to tolerate antivert PO. IV fluids infusing.
[2020-02-08 21:18] LABS: URINE AMPHETAMINE SCREEN NEGATIVE (Neg); URINE BARBITUATE SCREEN NEGATIVE (Neg); URINE BENZODIAZEPINES SCREEN NEGATIVE (Neg); URINE CANNABINOID SCREEN POSITIVE (Neg); URINE COCAINE SCREEN NEGATIVE (Neg); URINE METHADONE SCREEN NEGATIVE (Neg); URINE OPIATE SCREEN NEGATIVE (Neg); URINE PHENCYCLIDINE SCREEN NEGATIVE (Neg)
[2020-02-08] MEDS ORDERED: haloperidol lactate 5mg/ml inj IM ONE (21:35)
[2020-02-08] MEDS ORDERED: DICY10CA88 PO (22:15)
[2020-02-08] MEDS ORDERED: MECL-159 PO (22:15)
[2020-02-08 22:34] VITALS: BP 116/70
== END 2020-02-08 22:37 | disposition home or self-care (01) ==
LOC: ER 19:05
DX: R11.2 Nausea with vomiting, unspecified (principal); H81.399 Other peripheral vertigo, unspecified ear; R51 Headache; F41.9 Anxiety disorder, unspecified; F31.9 Bipolar disorder, unspecified; F12.90 Cannabis use, unspecified, uncomplicated; Z98.890 Other specified postprocedural states; Z88.6 Allergy status to analgesic agent; Z88.1 Allergy status to other antibiotic agents; Z88.2 Allergy status to sulfonamides; Z79.2 Long term (current) use of antibiotics; Z79.899 Other long term (current) drug therapy
CPT/HCPCS: 36415; 80053; 80305; 81001; 81025; 83605; 84145; 85025; 87088; 96372; 96374; 99285; J1630; J2060; J7030; J8597; 99284

== ENCOUNTER 2020-02-11 20:17 | Emergency (ER) | payer MEDICAID ==
[~2020-02-11] VITALS: Ht 165.1 cm; Wt 55.0 kg
[~2020-02-11 20:17] MED LIST changes: +DICY10CA88 PO; +MECL-159 PO
[2020-02-11] MEDS ORDERED: LIDOcaine 1% 30ml preserv. free vial SQ STA (21:23)
[2020-02-11] MEDS ORDERED: ketorolac tromethamine 15mg/ml inj. IV ONE (21:25)
[2020-02-11] MEDS ORDERED: normal saline 1000ML IV soln IVB ONE (21:25)
[2020-02-11] MEDS ORDERED: diphenhydrAMINE 50 mg/ml inj IV ONE (21:25)
[2020-02-11] MEDS ORDERED: LORazepam 2 mg/ml vial IV ONE (21:25)
[2020-02-11] MEDS ORDERED: proCHLORperazine 10 MG/2 ml inj IV ONE (21:25)
[2020-02-11 22:10] VITALS: BP 140/77
[2020-02-11] MEDS ORDERED: PROC-8 PO (22:46)
[2020-02-11] MEDS ORDERED: DIPH25CA83 PO (22:46)
== END 2020-02-11 22:56 | disposition home or self-care (01) ==
LOC: ER 20:18
DX: R51 Headache (principal); R11.2 Nausea with vomiting, unspecified; M54.2 Cervicalgia; F12.90 Cannabis use, unspecified, uncomplicated; Z98.890 Other specified postprocedural states; Z88.1 Allergy status to other antibiotic agents; Z88.2 Allergy status to sulfonamides; Z88.6 Allergy status to analgesic agent; Z79.899 Other long term (current) drug therapy
CPT/HCPCS: 20552; 96361; 96374; 96375; 99284; J0780; J1200; J1885; J2060; J7030

== ENCOUNTER 2020-03-28 19:23 | Emergency (ER) | payer MEDICAID ==
[~2020-03-28] VITALS: Ht 165.1 cm; Wt 56.8 kg
[~2020-03-28 19:23] MED LIST changes: +DIPH25CA83 PO
[2020-03-28] MEDS ORDERED: LORazepam 2 mg/ml vial IV ONE (20:30)
[2020-03-28] MEDS ORDERED: ondansetron/PF 4mg/2ml inj IV ONE (20:30)
[2020-03-28] MEDS ORDERED: normal saline 1000ML IV soln IV ONE (20:30)
--- NOTE | 2020-03-28 20:35 | NUR ---
pt states she has been throwing up a lot that she may not be able to pee. pt encouraged to try to pee in the bathroom and provide a little urine if possible for test prior to medication administration and IV start. pt verbalizes understanding.
[2020-03-28 20:59] LABS: CLARITY,URINE SLIGHTLY CLOUDY (Clear); COLOR,URINE YELLOW (Yellow); GLUCOSE, URINE NEGATIVE (Neg); KETONES,URINE >=80 mg/dl (Neg); LEUKOCYTE ESTERASE ,URINE NEGATIVE (Neg); NITRITES, URINE NEGATIVE (Neg); OCCULT BLOOD,URINE TRACE-LYSED (Neg); PROTEIN,URINE TRACE mg/dl (Neg); UROBILINOGEN,URINE 0.2 E.U/dL (0.2-1.0)
[2020-03-28 21:00] LABS: URINE HCG NEGATIVE (NEG)
[2020-03-28 21:03] LABS: BASOPHILS % (AUTO) 0.2 % (0-1); EOSINOPHILS % (AUTO) 0.1 % (0-6); HEMATOCRIT 42.3 % (35.0-45.0); HEMOGLOBIN 14.2 g/dl (12.0-16.0); LYMPHOCYTES # (AUTO) 0.8 X10'3 (1.1-4.8); LYMPHOCYTES % (AUTO) 4.6 % (21-51); MEAN CORPUSCULAR HEMOGLOBIN 32.2 PG (27.0-31.0); MEAN CORPUSCULAR HGB CONC 33.6 g/dL (33.0-36.5); MEAN CORPUSCULAR VOLUME 95.8 FL (78-98); MEAN PLATELET VOLUME 8.6 FL (7.4-10.4); MONOCYTES # (AUTO) 0.5 X10'3 (0-0.9); MONOCYTES % (AUTO) 2.7 % (2-12); NEUTROPHILS # (AUTO) 16.4 X10'3 (1.8-7.7); NEUTROPHILS % (AUTO) 92.4 % (42-75); PLATELET COUNT 303 X10'3 (140-440); RED BLOOD COUNT 4.41 X10'6 (4.20-5.60); RED CELL DISTRIBUTION WIDTH 12.5 % (11.5-14.5); WHITE BLOOD COUNT 17.8 X10'3 (4.5-11.0)
[2020-03-28 21:04] LABS: UA COLLECTION TYPE CLN CATCH MIDSTREAM
[2020-03-28 21:05] LABS: BACTERIA,URINE 3+ /HPF (Neg); RBC,URINE 0-2 /HPF (0-2); SQUAMOUS EPITHELIAL CELL,UR MANY /LPF (FEW); WBC,URINE NONE SEEN /HPF (0-4)
[2020-03-28 21:06] LABS: URINE AMPHETAMINE SCREEN POSITIVE (Neg); URINE BARBITUATE SCREEN NEGATIVE (Neg); URINE BENZODIAZEPINES SCREEN POSITIVE (Neg); URINE CANNABINOID SCREEN POSITIVE (Neg); URINE COCAINE SCREEN NEGATIVE (Neg); URINE METHADONE SCREEN NEGATIVE (Neg); URINE OPIATE SCREEN NEGATIVE (Neg); URINE PHENCYCLIDINE SCREEN NEGATIVE (Neg)
[2020-03-28 21:22] LABS: ALANINE AMINOTRANSFERASE 21 U/L (12-78); ALBUMIN 4.7 G/DL (3.4-5.0); ALBUMIN/GLOBULIN RATIO 1.4 (1.1-1.5); ALKALINE PHOSPHATASE 55 IU/L (46-116); ANION GAP 17 (8-16); ASPARTATE AMINO TRANSFERASE 22 U/L (10-37); BILIRUBIN,TOTAL 0.3 MG/DL (0.1-1.0); BLOOD UREA NITROGEN 18 MG/DL (7-18); CALCIUM 10.1 MG/DL (8.5-10.1); CHLORIDE 106 MMOL/L (99-107); GLUCOSE 146 MG/DL (70-104); POTASSIUM 3.6 MMOL/L (3.5-5.1); SODIUM 141 MMOL/L (135-145); TOTAL CARBON DIOXIDE 17.6 MMOL/L (24-32); TOTAL PROTEIN 8.1 G/DL (6.4-8.2); eGFR 68 ML/MIN
[2020-03-28] MEDS ORDERED: ONDA4TAB6 PO (21:28)
[2020-03-28] MEDS ORDERED: LORazepam 0.5 MG tablet PO ONE (22:15)
[2020-03-28 22:24] VITALS: BP 119/78
== END 2020-03-28 22:28 | disposition home or self-care (01) ==
LOC: ER 19:23
DX: F41.9 Anxiety disorder, unspecified (principal); R11.2 Nausea with vomiting, unspecified; F15.90 Other stimulant use, unspecified, uncomplicated; R10.30 Lower abdominal pain, unspecified; E86.0 Dehydration; F31.9 Bipolar disorder, unspecified; G89.29 Other chronic pain; F12.90 Cannabis use, unspecified, uncomplicated; Z98.890 Other specified postprocedural states; Z88.8 Allergy status to other drugs, medicaments and biological substances; Z88.2 Allergy status to sulfonamides; Z88.6 Allergy status to analgesic agent; Z79.899 Other long term (current) drug therapy
CPT/HCPCS: 36415; 80053; 80305; 81001; 81025; 85025; 96374; 96375; 99284; J2060; J2405; J7030

== ENCOUNTER 2020-04-01 14:09 | Emergency (ER) | payer MEDICAID ==
[~2020-04-01] VITALS: Ht 165.1 cm; Wt 52.0 kg
[2020-04-01] MEDS ORDERED: CYCL-1 PO (14:43)
[2020-04-01] MEDS ORDERED: OLAN5TAB5 PO (14:43)
[2020-04-01] MEDS ORDERED: ONDA8TAB6 PO (14:43)
[2020-04-01] MEDS ORDERED: TRAZ-251 PO (14:43)
[2020-04-01] MEDS ORDERED: NAPR-996 PO (14:43)
[2020-04-01] MEDS ORDERED: CHOL20004 PO (14:43)
[2020-04-01] MEDS ORDERED: MIRT15TA PO (14:43)
[2020-04-01] MEDS ORDERED: LORA2TAB96 PO ×2 (14:43)
[2020-04-01] MEDS ORDERED: FAMO-128 PO (14:43)
[2020-04-01] MEDS ORDERED: AMPH10TA23 PO (14:43)
[2020-04-01 15:06] LABS: CLARITY,URINE CLEAR (Clear); COLOR,URINE YELLOW (Yellow); GLUCOSE, URINE NEGATIVE (Neg); KETONES,URINE >=80 mg/dl (Neg); LEUKOCYTE ESTERASE ,URINE NEGATIVE (Neg); NITRITES, URINE NEGATIVE (Neg); OCCULT BLOOD,URINE MODERATE (Neg); PH,URINE 5.5 (4.8-8.0); PROTEIN,URINE TRACE mg/dl (Neg); UROBILINOGEN,URINE 0.2 E.U/dL (0.2-1.0)
[2020-04-01 15:11] LABS: UA COLLECTION TYPE CLN CATCH MIDSTREAM
[2020-04-01 15:12] LABS: BACTERIA,URINE FEW /HPF (Neg); MUCUS STRANDS FEW /LPF (Neg); RBC,URINE 0-2 /HPF (0-2); SQUAMOUS EPITHELIAL CELL,UR MANY /LPF (FEW); WBC,URINE 0-4 /HPF (0-4)
[2020-04-01 15:12] LABS: BASOPHILS # (AUTO) 0.1 X10'3 (0-0.2); BASOPHILS % (AUTO) 0.7 % (0-1); EOSINOPHILS % (AUTO) 0.4 % (0-6); HEMATOCRIT 42.2 % (35.0-45.0); HEMOGLOBIN 14.8 g/dl (12.0-16.0); LYMPHOCYTES # (AUTO) 2.1 X10'3 (1.1-4.8); LYMPHOCYTES % (AUTO) 21.7 % (21-51); MEAN CORPUSCULAR HEMOGLOBIN 33.3 PG (27.0-31.0); MEAN CORPUSCULAR HGB CONC 35.2 g/dL (33.0-36.5); MEAN CORPUSCULAR VOLUME 94.8 FL (78-98); MEAN PLATELET VOLUME 8.5 FL (7.4-10.4); MONOCYTES # (AUTO) 0.7 X10'3 (0-0.9); MONOCYTES % (AUTO) 6.9 % (2-12); NEUTROPHILS # (AUTO) 6.9 X10'3 (1.8-7.7); NEUTROPHILS % (AUTO) 70.3 % (42-75); PLATELET COUNT 291 X10'3 (140-440); RED BLOOD COUNT 4.45 X10'6 (4.20-5.60); WHITE BLOOD COUNT 9.8 X10'3 (4.5-11.0)
[2020-04-01 15:18] LABS: URINE AMPHETAMINE SCREEN NEGATIVE (Neg); URINE BARBITUATE SCREEN NEGATIVE (Neg); URINE BENZODIAZEPINES SCREEN NEGATIVE (Neg); URINE CANNABINOID SCREEN POSITIVE (Neg); URINE COCAINE SCREEN NEGATIVE (Neg); URINE METHADONE SCREEN NEGATIVE (Neg); URINE OPIATE SCREEN NEGATIVE (Neg); URINE PHENCYCLIDINE SCREEN NEGATIVE (Neg)
--- NOTE | 2020-04-01 15:28 | NUR ---
Patient with emesis. Patient states she hasn't slept well. Dr Ryan evaluating patient.
[2020-04-01 15:31] LABS: HCG SERUM QL NEGATIVE
[2020-04-01 15:37] LABS: ALANINE AMINOTRANSFERASE 19 U/L (12-78); ALBUMIN 4.6 G/DL (3.4-5.0); ALBUMIN/GLOBULIN RATIO 1.2 (1.1-1.5); ALKALINE PHOSPHATASE 53 IU/L (46-116); AMYLASE 37 U/L (25-115); ANION GAP 18 (8-16); ASPARTATE AMINO TRANSFERASE 18 U/L (10-37); BILIRUBIN,TOTAL 0.8 MG/DL (0.1-1.0); BLOOD UREA NITROGEN 20 MG/DL (7-18); BUN/CREATININE RATIO 22.7 (6.6-38.0); CALCIUM 9.6 MG/DL (8.5-10.1); CHLORIDE 102 MMOL/L (99-107); CREATININE 0.88 MG/DL (0.40-0.90); ETHANOL < 0.010 GM/DL (0.0-0.010); GLUCOSE 84 MG/DL (70-104); LIPASE 97 U/L (73-393); POTASSIUM 3.3 MMOL/L (3.5-5.1); SODIUM 140 MMOL/L (135-145); TOTAL CARBON DIOXIDE 19.7 MMOL/L (24-32); TOTAL PROTEIN 8.3 G/DL (6.4-8.2); eGFR 79 ML/MIN
[2020-04-01] MEDS ORDERED: LORA-269 PO ×2 (15:44)
--- NOTE | 2020-04-01 16:00 | NUR ---
Patient is awake and alert and feeling anxious. No meds have been ordered by Dr Ryan. RN gave the Dr her Med Rec but Dr was on the phone with Clinical Rn Liaison and advised RN that he would get back to RN on the meds. Patient has not been placed on a 1799. Patient states she is having suicidal thoughts but without a plan. Patient denies hearing voices but states her thoughts are racing due to her ADHD. RN asked patient to take slow deep breaths. Continue to monitor.
[2020-04-01] MEDS ORDERED: LORazepam 1 MG tablet PO PRN ×2 (16:10→19:00)
--- NOTE | 2020-04-01 16:37 | NUR ---
PACKET FAXED TO [facility]
[2020-04-01] MEDS ORDERED: acetaminophen 325mg tablet PO ONE (16:50)
--- NOTE | 2020-04-01 16:57 | NUR ---
Patient informed of the 1798, patient started hyperventilating and sitting in the corner crying. Dr Ryan informed. He stated he would swing by and see her when he has a chance.
--- NOTE | 2020-04-01 17:25 | NUR ---
Patient crawled back in bed and is now asleep. Continue to monitor.
[2020-04-01] MEDS: ondansetron 4mg rapidly disintigrating tab PO PRN ×2 (18:07→20:55)
[2020-04-01] MEDS ORDERED: diphenhydrAMINE 25mg capsule PO ONE (19:00)
[2020-04-01] MEDS ORDERED: proCHLORperazine 10mg tablet PO ONE (19:00)
[2020-04-01] MEDS ORDERED: LIDOcaine Viscous 15ml cup MM PRN (21:20)
[2020-04-01] MEDS ORDERED: famotidine 20mg tablet PO ONE (21:20)
[2020-04-01] MEDS ORDERED: mag hydrox/Alum hydrox/simeth 30ml oral suspension PO ONE (21:20)
[2020-04-01 22:18] VITALS: BP 123/77
== END 2020-04-01 22:21 | disposition home or self-care (01) ==
LOC: ER 14:10
DX: F41.9 Anxiety disorder, unspecified (principal); G89.29 Other chronic pain; F31.9 Bipolar disorder, unspecified; F17.200 Nicotine dependence, unspecified, uncomplicated; R11.10 Vomiting, unspecified; R45.851 Suicidal ideations; Z98.890 Other specified postprocedural states; Z88.2 Allergy status to sulfonamides; Z88.8 Allergy status to other drugs, medicaments and biological substances; Z79.899 Other long term (current) drug therapy
CPT/HCPCS: 36415; 80053; 80305; 80320; 81001; 82150; 83690; 84703; 85025; 99284; Q0163; Q0164

== ENCOUNTER 2020-04-04 09:12 | Emergency (ER) | payer MEDICAID ==
[~2020-04-04] VITALS: Ht 165.1 cm; Wt 54.5 kg
[~2020-04-04 09:12] MED LIST changes: -ACYC-202 PO; -CAPS60CR6 TP; +CHOL20004 PO; -DICY10CA88 PO; -DIPH25CA83 PO; -ETON68IM3 SQ; +FAMO-128 PO; +LORA-269 PO; -LORA1TAB PO; -LORA2TAB96 PO; -MECL-159 PO; -OMEP20CA15 PO; -ONDA4TAB6 PO; -ONDA8TAB9 PO; -PROC-8 PO; -PROM25SU46 RC; +TRAZ-251 PO
[2020-04-04] MEDS ORDERED: haloperidol lactate 5mg/ml inj IM ONE (10:05)
[2020-04-04] MEDS ORDERED: famotidine/PF 10 mg/ml inj IV ONE (10:05)
[2020-04-04] MEDS ORDERED: LORazepam 2 mg/ml vial IV ONE (10:05)
[2020-04-04] MEDS ORDERED: ondansetron/PF 4mg/2ml inj IV ONE (10:05)
[2020-04-04] MEDS ORDERED: normal saline 1000ML IV soln IV ONE (10:05)
[2020-04-04 11:48] VITALS: BP 110/70
== END 2020-04-04 11:55 | disposition home or self-care (01) ==
LOC: ER 09:13
DX: R11.15 Cyclical vomiting syndrome unrelated to migraine (principal); R11.2 Nausea with vomiting, unspecified; F12.90 Cannabis use, unspecified, uncomplicated; G89.29 Other chronic pain; F41.9 Anxiety disorder, unspecified; F31.9 Bipolar disorder, unspecified; Z98.890 Other specified postprocedural states; Z88.8 Allergy status to other drugs, medicaments and biological substances; Z88.2 Allergy status to sulfonamides; Z88.6 Allergy status to analgesic agent; Z91.013 Allergy to seafood; Z79.899 Other long term (current) drug therapy
CPT/HCPCS: 93005; 96361; 96372; 96374; 96375; 99284; J1630; J2060; J2405; J3490; J7030

== ENCOUNTER 2022-02-09 08:55 | Emergency (ER) | payer MEDICAID ==
[~2022-02-09] VITALS: Ht 165.1 cm; Wt 49.5 kg
[2022-02-09 09:28] VITALS: BP 114/82
[2022-02-09] MEDS ORDERED: proCHLORperazine 10 MG/2 ml inj IV ONE (09:35)
[2022-02-09] MEDS ORDERED: LORazepam 2 mg/ml vial IV ONE (09:35)
[2022-02-09] MEDS ORDERED: normal saline 1000ML IV soln IVB ONE (09:35)
[2022-02-09] MEDS ORDERED: diphenhydrAMINE 50 mg/ml inj IV ONE (10:05)
[2022-02-09 10:13] LABS: CLARITY,URINE SLIGHTLY CLOUDY (Clear); COLOR,URINE YELLOW (Yellow); GLUCOSE, URINE NEGATIVE (Neg); KETONES,URINE >=80 mg/dl (Neg); LEUKOCYTE ESTERASE ,URINE NEGATIVE (Neg); NITRITES, URINE NEGATIVE (Neg); OCCULT BLOOD,URINE SMALL (Neg); PROTEIN,URINE 30 mg/dl (Neg); UROBILINOGEN,URINE 0.2 E.U/dL (0.2-1.0)
[2022-02-09 10:19] LABS: URINE HCG NEGATIVE (NEG)
[2022-02-09 10:20] LABS: UA COLLECTION TYPE CLN CATCH MIDSTREAM
[2022-02-09 10:22] LABS: MUCUS STRANDS MANY /LPF (Neg); SQUAMOUS EPITHELIAL CELL,UR MANY /LPF (FEW)
[2022-02-09 10:24] LABS: BACTERIA,URINE FEW /HPF (Neg); WBC,URINE NONE SEEN /HPF (0-4)
[2022-02-09 10:26] LABS: ALANINE AMINOTRANSFERASE 36 U/L (12-78); ALBUMIN 4.7 G/DL (3.4-5.0); ALBUMIN/GLOBULIN RATIO 1.3 (1.1-1.5); ALKALINE PHOSPHATASE 47 IU/L (46-116); ANION GAP 13 (8-16); ASPARTATE AMINO TRANSFERASE 25 U/L (10-37); BILIRUBIN,TOTAL 0.7 MG/DL (0.1-1.0); BLOOD UREA NITROGEN 18 MG/DL (7-18); CALCIUM 9.7 MG/DL (8.5-10.1); CHLORIDE 102 MMOL/L (99-107); CREATININE 0.82 MG/DL (0.40-0.90); GLUCOSE 99 MG/DL (70-104); LIPASE 218 U/L (73-393); POTASSIUM 3.6 MMOL/L (3.5-5.1); SODIUM 138 MMOL/L (135-145); TOTAL CARBON DIOXIDE 23.4 MMOL/L (24-32); TOTAL PROTEIN 8.4 G/DL (6.4-8.2); eGFR 84 ML/MIN
[2022-02-09 10:29] LABS: BASOPHILS % (AUTO) 0.5 % (0-1); EOSINOPHILS % (AUTO) 0.1 % (0-6); HEMOGLOBIN 14.3 g/dl (12.0-16.0); LYMPHOCYTES # (AUTO) 1.1 X10'3 (1.1-4.8); MEAN CORPUSCULAR HGB CONC 34.1 g/dL (33.0-36.5); MEAN CORPUSCULAR VOLUME 93.6 FL (78-98); MEAN PLATELET VOLUME 9.4 FL (7.4-10.4); MONOCYTES # (AUTO) 0.5 X10'3 (0-0.9); MONOCYTES % (AUTO) 6.5 % (2-12); NEUTROPHILS # (AUTO) 6.6 X10'3 (1.8-7.7); NEUTROPHILS % (AUTO) 79.9 % (42-75); PLATELET COUNT 268 X10'3 (140-440); RED BLOOD COUNT 4.48 X10'6 (4.20-5.60); RED CELL DISTRIBUTION WIDTH 14.5 % (11.5-14.5); WHITE BLOOD COUNT 8.3 X10'3 (4.5-11.0)
== END 2022-02-09 10:51 | disposition home or self-care (01) ==
LOC: ER 08:56
DX: R11.10 Vomiting, unspecified (principal); R10.84 Generalized abdominal pain; K59.00 Constipation, unspecified; G89.29 Other chronic pain; F41.9 Anxiety disorder, unspecified; F31.9 Bipolar disorder, unspecified; F12.90 Cannabis use, unspecified, uncomplicated; Z98.890 Other specified postprocedural states; Z88.2 Allergy status to sulfonamides; Z88.1 Allergy status to other antibiotic agents; Z88.8 Allergy status to other drugs, medicaments and biological substances; Z79.899 Other long term (current) drug therapy
CPT/HCPCS: 36415; 80053; 81001; 81025; 83690; 85025; 96374; 96375; 99284; J0780; J1200; J2060; J7030

== ENCOUNTER 2022-04-28 21:13 | Emergency (ER) | payer MEDICAID ==
[~2022-04-28] VITALS: Ht 165.1 cm; Wt 48.2 kg
[2022-04-29] MEDS ORDERED: ondansetron 4mg rapidly disintigrating tab PO ONE (01:55)
[2022-04-29] MEDS ORDERED: ketorolac trometh. 30mg/ml inj. IM ONE (01:55)
[2022-04-29 02:19] VITALS: BP 152/74
== END 2022-04-29 02:26 | disposition home or self-care (01) ==
LOC: ER 21:14
DX: S09.8XXA Other specified injuries of head, initial encounter (principal); Z79.899 Other long term (current) drug therapy; W18.39XA Other fall on same level, initial encounter; Y93.89 Activity, other specified; Y92.89 Other specified places as the place of occurrence of the external cause; Y99.8 Other external cause status
CPT/HCPCS: 96372; 99283; J1885

== ENCOUNTER 2022-09-25 16:21 | Emergency (ER) | payer MEDICAID ==
[~2022-09-25] VITALS: Ht 165.1 cm; Wt 49.5 kg
[2022-09-25 16:50] VITALS: BP 127/79
[2022-09-25] MEDS ORDERED: CYCL-1 PO (19:28)
[2022-09-25] MEDS: ketorolac trometh. 30mg/ml inj. IM ONE (19:52)
== END 2022-09-25 20:02 | disposition home or self-care (01) ==
LOC: ER 16:22
DX: S09.90XA Unspecified injury of head, initial encounter (principal); G89.29 Other chronic pain; M54.50 Low back pain, unspecified; F31.9 Bipolar disorder, unspecified; F17.200 Nicotine dependence, unspecified, uncomplicated; F12.90 Cannabis use, unspecified, uncomplicated; Z88.2 Allergy status to sulfonamides; Z88.6 Allergy status to analgesic agent; Z88.8 Allergy status to other drugs, medicaments and biological substances; Z91.013 Allergy to seafood; W22.09XA Striking against other stationary object, initial encounter; Y93.89 Activity, other specified; Y92.89 Other specified places as the place of occurrence of the external cause; Y99.8 Other external cause status
CPT/HCPCS: 96372; 99283; J1885

== ENCOUNTER 2022-11-25 13:16 | Emergency (ER) | payer MEDICAID ==
[~2022-11-25 13:16] MED LIST changes: +CYCL-1 PO
== END 2022-11-25 15:41 | disposition left against medical advice (07) ==
LOC: ER 13:16
DX: Z00.00 Encounter for general adult medical examination without abnormal findings (principal); Z53.21 Procedure and treatment not carried out due to patient leaving prior to being seen by health care provider

== ENCOUNTER 2024-01-12 13:39 | Outpatient (CLI) | payer MEDICAID | END 2024-01-12 23:59 | disposition home or self-care (01) | LOC: RAD 13:39 | PROVIDERS: ATTEND Family Medicine | DX: M25.511 Pain in right shoulder (principal); I87.8 Other specified disorders of veins | CPT/HCPCS: 73030 ==

== ENCOUNTER 2024-01-12 13:47 | Outpatient (CLI) | payer MEDICAID | END 2024-01-12 23:59 | disposition home or self-care (01) | LOC: RAD 13:47 | PROVIDERS: ATTEND Nurse Practitioner Family | DX: I87.8 Other specified disorders of veins (principal); R10.2 Pelvic and perineal pain; M25.531 Pain in right wrist; Z98.890 Other specified postprocedural states | CPT/HCPCS: 73110; 73522 ==

== ENCOUNTER → 2024-03-25 | Outpatient (CLI) | payer MEDICAID | END | disposition home or self-care (01) | LOC: RAD 13:35 | PROVIDERS: ATTEND Physician Assistant | DX: N39.0 Urinary tract infection, site not specified (principal); R31.9 Hematuria, unspecified | CPT/HCPCS: 76770 ==

== ENCOUNTER 2024-06-15 08:32 | Outpatient (CLI) | payer MEDICAID ==
[2024-06-16] MEDS ORDERED: GADOTERATE MEGLUMINE 7.5 MMOL/15 ML VIAL IV ONE (18:04)
== END 2024-06-15 23:59 | disposition home or self-care (01) ==
LOC: MRI 08:32
PROVIDERS: ATTEND Psychiatry & Neurology Neurology
DX: M54.12 Radiculopathy, cervical region (principal); G43.019 Migraine without aura, intractable, without status migrainosus; J32.8 Other chronic sinusitis
CPT/HCPCS: 70553; A9575

== ENCOUNTER 2024-06-22 09:15 | Outpatient (CLI) | payer MEDICAID ==
[2024-06-23] MEDS ORDERED: GADOTERATE MEGLUMINE 7.5 MMOL/15 ML VIAL IV ONE (11:39)
== END 2024-06-22 23:59 | disposition home or self-care (01) ==
LOC: MRI 09:15
PROVIDERS: ATTEND Psychiatry & Neurology Neurology
DX: M50.122 Cervical disc disorder at C5-C6 level with radiculopathy (principal); M48.02 Spinal stenosis, cervical region; G43.019 Migraine without aura, intractable, without status migrainosus
CPT/HCPCS: 72156; A9575

== ENCOUNTER 2024-08-08 09:08 | Outpatient (CLI) | payer MEDICAID | END 2024-08-08 23:59 | disposition home or self-care (01) | LOC: RAD 09:08 | PROVIDERS: ATTEND General Practice | DX: K90.0 Celiac disease (principal); E04.1 Nontoxic single thyroid nodule | CPT/HCPCS: 76536; 76700 ==

== ENCOUNTER 2024-12-29 10:52 | Emergency (ER) | payer MEDICAID ==
[~2024-12-29] VITALS: Ht 165.1 cm; Wt 43.5 kg
[2024-12-29 10:59] VITALS: TEMP 97.4
[2024-12-29] MEDS ORDERED: ondansetron/PF 4mg/2ml inj IV PRN (11:10)
[2024-12-29] MEDS: ondansetron/PF 4mg/2ml inj IV ONE (11:35)
[2024-12-29] MEDS: morphine 4 MG/ML inj SYRINge IV ONE ×2 (11:35→15:08)
[2024-12-29 11:39] LABS: BASOPHILS # (AUTO) 0.1 X10'3 (0-0.2); BASOPHILS % (AUTO) 0.5 % (0-1); EOSINOPHILS # (AUTO) 0.1 X10'3 (0-0.9); EOSINOPHILS % (AUTO) 0.8 % (0-6); HEMATOCRIT 42.8 % (35.0-45.0); HEMOGLOBIN 14.1 g/dl (12.0-16.0); LYMPHOCYTES # (AUTO) 1.5 X10'3 (1.1-4.8); LYMPHOCYTES % (AUTO) 14.6 % (21-51); MEAN CORPUSCULAR HEMOGLOBIN 30.6 PG (27.0-31.0); MEAN CORPUSCULAR HGB CONC 32.9 g/dL (33.0-36.5); MEAN PLATELET VOLUME 8.3 FL (7.4-10.4); MONOCYTES # (AUTO) 0.5 X10'3 (0-0.9); MONOCYTES % (AUTO) 4.8 % (2-12); NEUTROPHILS # (AUTO) 8.2 X10'3 (1.8-7.7); NEUTROPHILS % (AUTO) 79.3 % (42-75); PLATELET COUNT 330 X10'3 (140-440); RED BLOOD COUNT 4.61 X10'6 (4.20-5.60); RED CELL DISTRIBUTION WIDTH 14.8 % (11.5-14.5); WHITE BLOOD COUNT 10.3 X10'3 (4.5-11.0)
[2024-12-29 11:56] LABS: ALANINE AMINOTRANSFERASE 33 U/L (12-78); ALBUMIN 3.8 G/DL (3.4-5.0); ALBUMIN/GLOBULIN RATIO 0.8 (1.1-1.5); ALKALINE PHOSPHATASE 46 IU/L (46-116); ANION GAP 14 (8-16); ASPARTATE AMINO TRANSFERASE 25 U/L (10-37); BILIRUBIN,TOTAL 0.3 MG/DL (0.1-1.0); BLOOD UREA NITROGEN 12 MG/DL (7-18); BUN/CREATININE RATIO 12.2 (10.0-20.0); CHLORIDE 102 MMOL/L (99-107); CREATININE 0.98 MG/DL (0.40-0.90); GLUCOSE 96 MG/DL (70-104); LIPASE 47 U/L (16-77); SODIUM 138 MMOL/L (135-145); TOTAL CARBON DIOXIDE 22.4 MMOL/L (24-32); TOTAL PROTEIN 8.5 G/DL (6.4-8.2); eCRCL 58 ML/MIN; eGFR 67 ML/MIN
[2024-12-29 12:39] LABS: BILIRUBIN,URINE NEGATIVE (Neg); CLARITY,URINE TURBID (Clear); COLOR,URINE YELLOW (Yellow); GLUCOSE, URINE NEGATIVE (Neg); KETONES,URINE TRACE mg/dl (Neg); LEUKOCYTE ESTERASE ,URINE NEGATIVE (Neg); NITRITES, URINE NEGATIVE (Neg); OCCULT BLOOD,URINE TRACE-INTACT (Neg); PROTEIN,URINE 30 mg/dl (Neg); UROBILINOGEN,URINE 0.2 E.U/dL (0.2-1.0)
[2024-12-29 12:44] LABS: UA COLLECTION TYPE CLN CATCH MIDSTREAM
[2024-12-29 12:45] LABS: URINE HCG NEGATIVE (NEG)
[2024-12-29 12:57] LABS: AMORPHOUS URATES 2+; SQUAMOUS EPITHELIAL CELL,UR MANY /LPF (FEW)
[2024-12-29 12:59] LABS: CAL OXALATE CRYSTALS 3+ /HPF (NEGATIVE)
[2024-12-29 13:00] LABS: BACTERIA,URINE 1+ /HPF (Neg); MUCUS STRANDS FEW /LPF (Neg); RBC,URINE NONE SEEN /HPF (0-2); WBC,URINE 0-4 /HPF (0-4)
[2024-12-29] MEDS ORDERED: metoclopramide 5 mg/ml inj IV ONE (14:50)
[2024-12-29] MEDS: haloperidol lactate 5mg/ml inj IM ONE (15:01)
[2024-12-29] MEDS ORDERED: METO-292 PO (16:27)
[2024-12-29 16:35] VITALS: BP 107/80; PULSE 68; RESP 18; O2SAT 100
== END 2024-12-29 16:43 | disposition home or self-care (01) ==
LOC: ER 10:53
DX: R11.10 Vomiting, unspecified (principal); F12.90 Cannabis use, unspecified, uncomplicated; G89.29 Other chronic pain; M54.9 Dorsalgia, unspecified; F32.A Depression, unspecified; F41.9 Anxiety disorder, unspecified; Z88.1 Allergy status to other antibiotic agents; Z88.2 Allergy status to sulfonamides; Z88.6 Allergy status to analgesic agent; Z91.018 Allergy to other foods; Z79.899 Other long term (current) drug therapy; Z98.890 Other specified postprocedural states
CPT/HCPCS: 36415; 76700; 80053; 81001; 81025; 83690; 85025; 96372; 96374; 96375; 96376; 99285; J1630; J2270; J2405

== ENCOUNTER 2025-03-27 10:58 | Emergency (ER) | payer MEDICAID ==
[~2025-03-27] VITALS: Ht 165.1 cm; Wt 54.6 kg
[~2025-03-27 10:58] MED LIST changes: +METO-292 PO
[2025-03-27 11:07] VITALS: BP 125/86; PULSE 111; RESP 15; O2SAT 99
[2025-03-27] MEDS ORDERED: AMOX-117 PO (12:21)
--- NOTE | 2025-03-27 12:25 | Physician Documentation ---
History of Present Illness ~ Chief Complaint: Bite-animal Stated Complaint: DOG BITE Time Seen by MD: 11:40 OK to notify your PCP?: No Primary Medical Doctor: Dr. Joshua Eugene HPI Patient presents for a dog bite on the left hand. Does not report any severe pain states that she has a puncture on the left. Day of Onset: Mar 27, 2025 Tetanus within 5 years?: Yes Medication Reconciliation Allergies: Coded Allergies: Metronidazole HCl (Verified Allergy, Unknown, 06/09/19) Sulfa (Sulfonamide Antibiotics) (Verified Allergy, Unknown, 06/09/19) metronidazole (Verified Allergy, Unknown, 06/09/19) ibuprofen (Unverified Adverse Reaction, Severe, N/V, 06/09/19) shrimp (Verified Adverse Reaction, Unknown, 04/01/20) Scheduled Amox Tr/Potassium Clavulanate (Augmentin 875-125 Tablet), 1 TAB PO Q12H Cholecalciferol (Vitamin D), 2 TAB PO DAILY, (Reported) Cyclobenzaprine* (Cyclobenzaprine*), 1 TAB PO HS Famotidine (Pepcid), 1 TAB PO PRN, (Reported) Lorazepam (Ativan), 2 TAB PO HS, (Reported) Metoclopramide HCl (Reglan), 1 TAB PO Q8H Scheduled PRN Lorazepam (Ativan), 1 TAB PO DAILY PRN for for anxiety/agitation, (Reported) Trazodone HCl (Trazodone HCl), 0.5 TAB PO HS PRN for sleep, (Reported) Past Medical History Past Medical History: *GI/HEPATOBILIARY*, *RENAL/*, Chronic Back Pain, Herpes Simplex, *PSYCH*, Anxiety, Bipolar, Depression Past Surgical History: orthopedic surgeries Alcohol Use: Rarely Drug Use: marijuana Lives with: Family Lives In: Home Occupation: employed Review of Systems All Other Systems at this time: Reviewed and Negative ROS As stated above in the HPI, otherwise all systems are reviewed and negative. Physical Exam Vital Signs: Temperature: 98.9, Source: Temporal, Heart Rate: 111, Respiratory Rate: 15, BP: 125/86, Pulse Oximetry: 99, Weight: 54.600 Physical Exam General: Alert, no apparent distress. Extremities: Normal range of motion, no deformity. smal puncture left hand Neurologic: Oriented x4. Psychiatric: Normal mood and affect. Skin: Normal color, warm and dry. No edema, no ecchymosis. Progress Results/Orders Results/Orders Vital Signs 03/27/25 03/27/25 11:07 12:43 Temp 98.9 98.9 Pulse 111 Resp 15 B/P (MAP) 125/86 Pulse Ox 99 Medical Decision Making Findings Patient indicated they are not interested in pursuing rabies vaccination considering the low likelihood of developing an rabies infection on antibiotics however. Wound care was completed via ER nurse Differential Dx:Considerations: Include: Abrasion, Allergic reaction, Anaphylaxis, Cellulitis, Contusion, Fracture, Hematoma, Insect envenomation, Laceration, Neurovascular injury, Punture wound, Retained foreign body, Urticaria, Other Departure Disposition: 01 HOME / SELF CARE / HOMELESS Impression: Primary Impression: Dog bite Condition: Stable Discharge Instructions: Animal Bite, Adult Referrals: NO PRIMARY CARE PROVIDER (PCP) Prescriptions Amox Tr/Potassium Clavulanate (Augmentin 875-125 Tablet) 1 Each Tablet 1 TAB PO Q12H for 10 Days, #20 TAB Prov: WOJCIECH STEVEN [employer] REPA[employer]ER 03/27/25 Education Educated: Patient Educated regarding: diagnosis Signature Scribe Signature: f Attestation: Scribed for Wojciech Steven Health Practice Manager by Wojciech Steven - DELPHINE . 03/27/25 12:20 WOJCIECH STEVEN NP Mar 27, 2025 12:25
[2025-03-27 12:43] VITALS: TEMP 98.9
== END 2025-03-27 12:44 | disposition home or self-care (01) ==
LOC: ER 10:58
DX: S61.432A Puncture wound without foreign body of left hand, initial encounter (principal); F12.90 Cannabis use, unspecified, uncomplicated; F41.9 Anxiety disorder, unspecified; F32.A Depression, unspecified; Z88.2 Allergy status to sulfonamides; Z88.1 Allergy status to other antibiotic agents; Z88.6 Allergy status to analgesic agent; Z91.013 Allergy to seafood; Z79.899 Other long term (current) drug therapy; W54.0XXA Bitten by dog, initial encounter; Y93.89 Activity, other specified; Y92.89 Other specified places as the place of occurrence of the external cause; Y99.8 Other external cause status
CPT/HCPCS: 99283